=== PATIENT | female | born 1995 | race Caucasian/White ===

== ENCOUNTER 2019-02-21 20:11 | Emergency (ER) | payer BC, SELFPAY ==
[2019-02-21 20:13] VITALS: BP 130/85; PULSE 81; RESP 17; TEMP 36.7; O2SAT 100; BMI 18.8
--- NOTE | 2019-02-21 20:22 | ED.VISSUMM ---
- ER Visit Summary Date of Service: 02/21/19 Chief Complaint: Nausea and vomiting, 7 weeks History of Present Illness: The patient is a 24 F who has nausea and vomiting. She started having this 3 days ago. She denies any abdominal pain. Every time she eats or drinks anything she has vomiting. She feels a little bit constipated as well. Denies any urinary symptoms. She is currently 7 weeks . She has had some issues with this previously in another but not as bad. She took nothing for this at home. Denies any fevers. She does admit to feeling dizzy. Physical Examination: Vital signs reviewed. HEENT exam unremarkable. Heart is regular rate and rhythm without murmurs. Lungs are clear to auscultation. Abdomen is soft and nontender. Extremities reveal no edema. Skin exam normal. Neurologic exam normal. Test Results: None performed Emergency Department Course and Treatment: The patient was given lactated Ringer's and Zofran IV. She feels much better. She was able to tolerate p.o. after this. I did perform a bedside ultrasound and her bladder is pretty full of urine. She is only 7 weeks it was difficult to see but I do see an IUP. She had an ultrasound earlier this week which showed a twin IUP. Patient has a follow-up tomorrow for a repeat ultrasound. She will keep this appointment. I will give her Zofran ODT for home. Treatment Plan: [] Disposition: Discharge Impression: Nausea and vomiting, first trimester This note was generated with [employer] software. It may contain incorrect words, spelling, and punctuation that were not noted in review of the chart prior to signing ED Disposition - Plan for ED Patient: Referrals: David Kirk MD [Primary Care Provider] -
[2019-02-21] MEDS: Ondansetron 4 MG/2 ML Vial IV (20:38)
[2019-02-21] MEDS: Lactated Ringers 1,000 ML 999 ML IV (20:38)
--- NOTE | 2019-02-21 22:02 | ED.DEP ---
ED Disposition - Plan for ED Patient: Disposition: Home or Assisted Living Instructions: VOMITING (5y-Adult) Prescriptions: Ondansetron [Zofran Odt] 4 mg PO Q8H PRN PRN #10 tab PRN Reason: Nausea Prescription Printed Referrals: David Kirk MD [Primary Care Provider] -
[2019-02-21 22:11] VITALS: BP 116/80; PULSE 63; RESP 16; O2SAT 97
[2019-02-21 22:20] VITALS: BP 116/80; PULSE 63; RESP 16; O2SAT 97
== END 2019-02-21 22:20 | disposition home or self-care (01) ==
PROVIDERS: Emergency Provider Emergency Medicine; Family Provider Family Medicine; PCP Family Medicine
DX: O21.9 Vomiting of pregnancy, unspecified (principal); Z3A.01 Less than 8 weeks gestation of pregnancy
CPT/HCPCS: 96361; 96374; 99283; A4216; J2405

== ENCOUNTER 2019-07-30 20:10 | Outpatient (CLI) | payer MEDICAID, SELFPAY ==
[2019-07-30 21:16] LABS: Bacteria 0 SEEN /hpf (None Seen); Mucous, Urine 0 SEEN /hpf (<or=2+); Red Blood Cells-Urine 0 SEEN /hpf (0-5); Squamous Epithelial Cells - UA 0 SEEN /hpf (5-10); White Blood Cells 0 SEEN /hpf (0-5)
[2019-07-30 21:37] LABS: Color, Urine Straw (Yellow); Glucose, Dipstick Normal (Normal); Ketone-Dipstick Negative (Negative); Leukocyte Esterase-Dipstick Negative /ul (Negative); Nitrite-Dipstick Negative (Negative); Occult Blood-Urine Negative /ul (Negative); Protein-Dipstick Negative (Negative); Urine Bilirubin Dipstick Negative (Negative); Urine Clarity Sl. Cloudy (Clear); Urine Urobilinogen Normal (Normal)
[2019-07-30 21:43] VITALS: BMI 23.0
[2019-07-30 21:52] LABS: Amorphous Sediment 1+
[2019-07-30] MEDS: Lactated Ringers 1,000 ML 999 ML IV (22:58)
[2019-07-30] MEDS: Betamethasone/Betamethasone 30 MG/5 ML Vial 12 MG IM (23:06)
[2019-07-30 23:18] LABS: Fetal Fibronectin Negative
--- NOTE | 2019-08-03 20:57 | OB.TRI.HP_ITS ---
History of Present Illness Date of Service: 07/30/19 Was patient seen by the physician?: No Reason For Visit: RULE OUT LABOR Date of Service: 07/30/19 Final BETTY: 10/09/19 Final BETTY Source: US <20 weeks Gestational age: 29 6/7 weeks Allergies No Known Allergies Allergy (Verified 07/31/19 19:23) Laboratory Studies: Laboratory Tests 07/30/19 07/30/19 Range/Units 21:05 21:05 Urine Color Straw (Yellow) Urine Clarity Sl. Cloudy (Clear) Urine pH 7.0 (5.0 - 8.0) Ur Specific [place] 1.010 (1.002-1.030) Urine Protein Negative (Negative) mg/dl Urine Glucose (UA) Normal (Normal) mg/dl Urine Ketones Negative (Negative) mg/dl Urine Occult Blood Negative (Negative) /ul Urine Nitrite Negative (Negative) Urine Bilirubin Negative (Negative) mg/dL Urine Urobilinogen Normal (Normal) mg/dl Ur Leukocyte Esterase Negative (Negative) /ul Urine RBC 0 SEEN (0-5) /hpf Urine WBC 0 SEEN (0-5) /hpf Ur Squamous Epith Cells 0 SEEN (5-10) /hpf Amorphous Sediment 1+ Urine Bacteria 0 SEEN (None Seen) /hpf Urine Mucus 0 SEEN (<or=2+) /hpf Fibronectin Negative NST - FHR Rate Baby A Baseline: 135 then 110 Variability:: Moderate Accelerations:: 15 x 15 Decelerations:: None NST Reactive:: Yes FHR Category:: Category I Uterine Activity:: frequent short contraction Impression/Plan 24 YOF high risk multigravida 29 6/7 weeks threatened PTL [place] home w/ f/u for second celestone tomorrow return prn or as scheduled
== END 2019-07-31 08:00 | disposition home or self-care (01) ==
LOC: WPOUT 20:39 → WP 20:40
PROVIDERS: Family Provider Family Medicine; PCP Family Medicine; Referring Provider Advanced Practice Midwife; Visit Provider Advanced Practice Midwife
DX: O47.03 False labor before 37 completed weeks of gestation, third trimester (principal); O09.43 Supervision of pregnancy with grand multiparity, third trimester; Z3A.29 29 weeks gestation of pregnancy
CPT/HCPCS: 96360; 59050; 81001; 82731; 87086; 87088; 96372; 99218; J7120; G0378; J0702

== ENCOUNTER 2019-07-31 19:12 | Outpatient (CLI) | payer MEDICAID, SELFPAY ==
[2019-07-30 21:43] VITALS: BMI 23.0
[2019-07-31 19:21] VITALS: BMI 22.8
[2019-07-31] MEDS: Betamethasone/Betamethasone 30 MG/5 ML Vial 12 MG IM (20:04)
--- NOTE | 2019-08-01 12:11 | OB.TRI.NOTE ---
History of Present Illness Date of Service: 07/31/19 Was patient seen by the physician?: No Reason For Visit: XAVIER INFANTE Date of Service: 07/31/19 Final BETTY: 10/09/19 Final BETTY Source: US <20 weeks Gestational age: 30w Allergies No Known Allergies Allergy (Verified 07/31/19 19:23) Impression/Plan 24-year-old 2 para 0 at 3 weeks 0 days with threatened labor. Returns for second betamethasone injection. No evidence of labor today. Betamethasone injection was given and patient was discharged home with routine follow-up and instructions.
== END 2019-07-31 20:18 | disposition home or self-care (01) ==
LOC: WPOUT 19:17 → WP 19:18
PROVIDERS: Family Provider Family Medicine; PCP Family Medicine; Visit Provider Obstetrics & Gynecology
DX: O60.03 Preterm labor without delivery, third trimester (principal); Z3A.30 30 weeks gestation of pregnancy
CPT/HCPCS: 96372; 99218; G0378; J0702

== ENCOUNTER 2019-08-31 03:12 | Outpatient (CLI) | payer MEDICAID, SELFPAY ==
[2019-08-31 03:38] VITALS: BMI 23.8
--- NOTE | 2019-08-31 06:44 | OB.TRI.NOTE ---
History of Present Illness Date of Service: 08/31/19 Was patient seen by the physician?: No Reason For Visit: R/O Final BETTY: 10/09/19 Final BETTY Source: US <20 weeks Gestational age: 34 Weeks and 3 Days Allergies No Known Allergies Allergy (Verified 08/31/19 03:39) NST - FHR Rate Baby A Baseline: 120 Variability:: Moderate Accelerations:: 15 x 15 Decelerations:: Variable NST Reactive:: Yes Uterine Activity:: Irregular Impression/Plan Reactive NST for threatened PTL
== END 2019-08-31 05:35 | disposition home or self-care (01) ==
LOC: WPOUT 03:35 → WP 03:35
PROVIDERS: PCP Family Medicine; Referring Provider Obstetrics & Gynecology; Visit Provider Obstetrics & Gynecology
DX: O60.03 Preterm labor without delivery, third trimester (principal); Z3A.00 Weeks of gestation of pregnancy not specified
CPT/HCPCS: 59025; 59050; 99218; G0378

== ENCOUNTER 2019-10-03 21:30 | Outpatient (CLI) | payer MEDICAID, SELFPAY ==
[2019-10-03 21:54] VITALS: BP 107/71; PULSE 83; TEMP 98.1; O2SAT 98
[2019-10-03 22:38] VITALS: BMI 23.6
[2019-10-03 22:57] LABS: ROM Internal Control Test YES-OK TO RESULT pt. (Internal QC); ROM Patient Test Negative (Negative)
--- NOTE | 2019-10-04 08:46 | OB.TRI.NOTE ---
History of Present Illness Date of Service: 10/03/19 Was patient seen by the physician?: No Reason For Visit: R/O LABOR Date of Service: 10/03/19 Final BETTY: 10/09/19 Final BETTY Source: US <20 weeks Gestational age: 39 Weeks and 1 Days Allergies No Known Allergies Allergy (Verified 10/03/19 22:24) Laboratory Studies: Laboratory Tests 10/03/19 Range/Units 21:56 Vag Amniotic Fld Detect Negative (Negative) NST - FHR Rate Baby A Baseline: 135 Variability:: Moderate Accelerations:: 15 x 15 NST Reactive:: Yes, Appropriate for gestational age FHR Category:: Category I Uterine Activity:: irreg ctxs Impression/Plan 24-year-old 2 para 0 at 39-1/7 weeks here for rule out labor and rule out rupture membranes. Amnio sure was negative. NST is reactive. Discharge home with routine instructions and follow-up.
[2019-10-06 23:41] VITALS: TEMP 36.8
== END 2019-10-03 23:55 | disposition home or self-care (01) ==
LOC: WPOUT 22:14 → WP 22:15
PROVIDERS: PCP Family Medicine; Visit Provider Obstetrics & Gynecology
DX: O47.1 False labor at or after 37 completed weeks of gestation (principal); Z3A.39 39 weeks gestation of pregnancy
CPT/HCPCS: 59025; 59050; 84112; 99218; G0378

== ENCOUNTER 2019-10-06 23:30 | Outpatient (CLI) | payer MEDICAID, SELFPAY ==
[2019-10-06 23:47] VITALS: BMI 23.5
[2019-10-06 23:49] VITALS: BP 109/73; PULSE 78; TEMP 37.1
--- NOTE | 2019-10-07 12:43 | OB.TRI.PN ---
Progress Notes Date of Service: 10/06/19 Progress Note: 24 year old at 40w4d for decreased movement. No contractions, vaginal bleeding, or signs of labor O: FHT 120, moderate variability, accels, no decels, reactive TOCO: one contraction A: Decreased Movement P: 1) No signs of labor. Reactive NST, D/C home
== END 2019-10-07 00:20 | disposition home or self-care (01) ==
LOC: WPOUT 23:43 → WP 23:44
PROVIDERS: PCP Family Medicine; Visit Provider Advanced Practice Midwife
DX: O36.8130 Decreased fetal movements, third trimester, not applicable or unspecified (principal); Z3A.40 40 weeks gestation of pregnancy
CPT/HCPCS: 59025; 59050; 99218; G0378

== ENCOUNTER 2019-10-12 03:20 | Inpatient (IN) | payer MEDICAID, SELFPAY ==
[2019-10-12] VITALS (19 sets, daily range): BP systolic 98–137; BP diastolic 54–89; PULSE 57–87; RESP 15–16; TEMP 36.8–37.4; O2SAT 97–98; BMI 23.3
[2019-10-12 03:20] LABS: ROM Internal Control Test YES-OK TO RESULT pt. (Internal QC)
[2019-10-12 03:21] LABS: ROM Patient Test POSITIVE (Negative)
[2019-10-12 04:52] LABS: Absolute Lymphocyte Count 1.78 X10^3/uL (0.83-4.51); Absolute Neutrophil Count 5.6 X10^3/uL (2.0-7.7); Basophil# 0.03 X10^3/uL; Basophil% 0.4 % (0-1); Eosinophil# 0.03 X10^3/uL; Eosinophils% 0.4 % (0-5); Hemoglobin 13.8 g/dL (12.0-15.0); Lymphocyte # 1.78 X10^3/ul (4.0); Lymphocyte % 22.2 % (19-41); Mean Corp Hgb Conc 35.4 g/dL (32-36); Mean Corpuscular Hgb 33.3 pg (27.0-32.0); Mean Platelet Vol. 10.3 fl (6.2-12.0); Monocyte# 0.61 X10^3/uL; Monocyte% 7.6 % (0-10); NRBC Flagged by Analyzer 0 % (0-5); Neutrophil # 5.55 X10^3/uL (2.7-7.7); Platelet Count 212 K/mm3 (150-450); RBC Distribution Width CV 12.6 % (11.6-14.6); RBC Distribution Width SD 43.8 fl (35.1-43.9); Red Blood Count 4.15 M/mm3 (4.2-5.4)
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
[2019-10-12] MEDS: Oxytocin 30 units/NS 500 ml 30 UNITS/500 ML IV.SOLN 334 UNITS IV (07:55)
--- NOTE | 2019-10-12 08:32 | PCM.OPRPT ---
Problem List (1) Post-term , 40-42 weeks of gestation Status: Acute Report of Operation Date of Procedure: 10/12/19 Pre-Operative Diagnosis: 40.3 weeks gestation, Spontaneous labor, SROM Post-Operative Diagnosis: same as above Surgery/Procedure Performed:: Description of Surgical Findings:: Viable female infant delivered in left occiput anterior position. Normal and intact appearing placenta. Three-vessel cord. Estimated Blood Loss (mL): 200 Description of Procedure: Patient progressed to complete dilation on own. Began feeling pressure and was able to push well with contractions. Delivery of head over intact perineum. Tight nuchal cord around neck x1. Shoulders and body delivered in somersault fashion. Cord clamped and cut after 60 second delay. Cord blood was obtained. Placenta delivered spontaneously and intact with a 3 vessel cord. Vaginal sweep completed. Fundus was firm and bleeding hemostatic. No lacerations were noted. A vaginal sweep was performed and sponge counts were correct. Vaginal Delivery Maternal Presentation: Spontaneous Rupture of Membranes Amniotic Membrane Rupture Type: Spontaneous at home Rupture of Membrane time: 0100 Amniotic Fluid Description: Clear Final BETTY: 10/09/19 Gestational age: 40 Weeks and 3 Days Date of Procedure: 10/12/19 Type of Anesthesia: None, - - Nitrous oxide Presentation: Vertex, IRMA Placental Delivery Description: Spontaneous Placenta Disposition: Routine to Lab Cord Vessel Description: 3 Vessels Cord Entanglement: Around neck x 1, tight, - - Around body x1 loose Estimated Blood Loss: 200 Infant A gender: Female (1 minute): 7 (5 minute): 9 Episiotomy Description: None Laceration: None Medications given after delivery: IV Pitocin Complications: None
--- NOTE | 2019-10-12 12:30 | NURSING ---
pt up to bathroom gait steady; pt void - did not save- denies any problems voiding- kandis care explained
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
[2019-10-13 00:15] VITALS: BP 125/75; PULSE 58; PULSE 62; RESP 18; TEMP 36.9
[2019-10-13 04:07] VITALS: BP 146/93; PULSE 49
[2019-10-13 04:09] VITALS: BP 121/75; PULSE 47
[2019-10-13 04:10] VITALS: BP 121/75; PULSE 58; RESP 14; TEMP 36.3
[2019-10-13 08:35] VITALS: BP 120/85; PULSE 58
--- NOTE | 2019-10-13 08:39 | PN.OBGYN_ITS ---
Patient Problems: Active and Suspected Problems (Last Updated 10/12/19 @ 08:24 by Teagan Downey CNM) Post-term , 40-42 weeks of gestation (Acute) Subjective: pt seen at bedside doing well. pt report good pain control. lochia mild. Breast feeding. Voiding w/o difficulty. - Physical Exam Vitals/I&O's: Vital Signs Temp Pulse Resp BP Pulse Ox 97.4 F L 58 L 14 120/85 H 97 10/13/19 04:10 10/13/19 08:35 10/13/19 04:10 10/13/19 08:35 10/12/19 15:16 Oxygen Delivery Method Room Air Weight: 67.585 kg Body Mass Index (BMI) 23.3 Intake and Output for Last 24 Hours 10/11/19 10/12/19 10/13/19 23:59 23:59 23:59 Intake Total 500 / 500 Output Total 75 / 75 Balance 425 / 425 General: Alert, Oriented x3 Abdomen: Soft, Non Tender, Non-Distended, - - fundus firm Extremities: No Calf Tenderness Current Medications Acetaminophen (Tylenol) 1,000 mg PO Q8H PRN PRN PRN Reason: Pain Score 1-3/10 Bisacodyl (Dulcolax) 10 mg RECTAL UD PRN PRN Reason: If no BM Dibucaine (Dibucaine) 1 applic TOPICAL TID PRN PRN; Protocol PRN Reason: Discomfort Hydrocortisone (Hytone) 1 applic TOPICAL TID PRN PRN; Protocol PRN Reason: Discomfort Ibuprofen (Motrin) 600 mg PO Q6H PRN PRN PRN Reason: Pain Score 1-3/10 Methylergonovine Maleate (Methergine) 0.2 mg IM X1 PRN PRN Reason: Excess bleeding/uterine atony Ondansetron HCl (Zofran) 4 mg IV Q4H PRN PRN PRN Reason: Nausea Senna/Docusate Sodium (Senokot-S, Sonja-Colace) 1 - 2 tablet PO DAILY PRN PRN PRN Reason: Constipation Simethicone (Mylicon) 80 mg PO PCHS PRN PRN Reason: Indigestion/Stomach pain Sodium Chloride () 5 - 15 ml IV UD PRN PRN Reason: SALINE FLUSH Medical Necessity - Tobacco Use Smoking Status: Never smoker Assessment/Plan All Active Problems (Last Updated 10/12/19 @ 08:24 by Teagan Downey CNM) Post-term , 40-42 weeks of gestation (Acute) PPD#1, doing well routine care pain mgmt [facility]
--- NOTE | 2019-10-13 08:42 | DCINST_ITS ---
Discharge Diet: No Restrictions Discharge Activity: Return to Normal Activity, May not drive while taking narcotic pain medications., May Shower May resume sexual activity in: 4-6 weeks Additional Activity Instructions:: Nothing in the vagina for 4-6 weeks. You may return to work/school in 6 weeks. Call your doctor if your incision/area has: Continuous Slow Oozing, Sudden Increased Bleeding, Increased Pain/ Swelling, Increased Redness, Foul Smelling Discharge Additional Instructions: If you experience any of the following, contact your healthcare provider. * Bleeding that soaks a pad every hour for 2 hours * Fever 100.4 or higher * Unrelieved incision or abdominal pain * Swelling, redness, discharge or bleeding from your incision or episiotomy site * Your incision begins to separate * Problems urinating (including inability to urinate or burning while urinating). * Visual changes * Severe headache * Flu-like symptoms * Pain or redness in one of both of your breasts * Pain, warmth, tenderness or swelling in your legs, especially the calf area * Frequent nausea and vomiting * Symptoms of depression or anxiety If you experience any of the following, call 911 or go to the nearest Emergency Room. * Chest pain * Problems breathing * Seizure activity * Partial or complete paralysis of a body part, slurred speech, weakness or drooping of the face, or a sudden inability to walk or hold your balance Allergies/Adverse Reactions: Allergies No Known Allergies Allergy (Verified 10/12/19 03:11) Medications to take at Discharge Pnv No.103/Folic/Om3s/Fish Oil [ Gummies] 1 ea PO DAILY 02/21/19 Sertraline HCl [Zoloft] 100 mg PO DAILY 02/21/19 Ferrous Sulfate [Iron] 1 tab PO DAILY 07/30/19 When: Call to make an appointment with your doctor in 1-2 weeks (virtual visit recommended) and then again in 6 weeks. If you had elevated Blood Pressure or 4th degree laceration you will need to be seen in 2 weeks. Primary Care Physician: David Kirk MD [Primary Care Provider] - Test Results: Test results from this visit will be discussed in further detail at your follow- up appointment, if applicable.
[2019-10-13 10:00] VITALS: BP 120/85; PULSE 58; RESP 12; TEMP 36.6
--- NOTE | 2019-10-13 11:50 | NURSING ---
1120 Discharged to home via wheelchair to car with in car seat. Pt states she wants to be discharged today and feels able to care for herself and her baby. Teaching completed. Denies questions. FOB supportive.
== END 2019-10-13 11:20 | disposition home or self-care (01) | DRG 560 ==
LOC: WPOUT 03:24 → WP 03:24
PROVIDERS: Admitting Provider Advanced Practice Midwife; PCP Family Medicine; Referring Provider Advanced Practice Midwife; Visit Provider Advanced Practice Midwife
DX: O48.0 Post-term pregnancy (principal); Z3A.40 40 weeks gestation of pregnancy; O69.1XX0 Labor and delivery complicated by cord around neck, with compression, not applicable or unspecified; Z37.0 Single live birth
CPT/HCPCS: 59025; 59050; 84112; 85025; 86850; 86900; 86901; 99218; G0378

== ENCOUNTER 2020-05-06 13:00 | Outpatient (CLI) | payer MEDICAID, SELFPAY ==
[2019-10-12 03:09] VITALS: BMI 23.3
== END 2020-05-06 14:00 | disposition home or self-care (01) ==
LOC: WPOUT 13:06 → WP 13:08
PROVIDERS: PCP Family Medicine; Referring Provider Advanced Practice Midwife; Visit Provider Advanced Practice Midwife
DX: O92.79 Other disorders of lactation (principal)
CPT/HCPCS: 96158; 96159

== ENCOUNTER 2021-01-15 12:18 | Emergency (ER) | payer MEDICAID, SELFPAY ==
[2019-10-12 03:09] VITALS: BMI 23.3
[2021-01-15 12:19] VITALS: BP 110/74; PULSE 73; RESP 14; TEMP 36.1; O2SAT 100; BMI 20.7
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
[2021-01-15 13:31] VITALS: PULSE 99; RESP 20; O2SAT 98
--- NOTE | 2021-01-15 13:31 | ED.RN ---
THIS NURSE REVIEWED D/C INSTRUCTIONS WITH PT AND . PT VERBALIZED UNDERSTANDING OF INSTRUCTIONS. PT DENIES FURTHER NEEDS OR QUESTIONS AT THIS TIME
== END 2021-01-15 13:32 | disposition home or self-care (01) ==
PROVIDERS: Emergency Provider Emergency Medicine
DX: T63.441A Toxic effect of venom of bees, accidental (unintentional), initial encounter (principal); R55 Syncope and collapse; F32.9 Major depressive disorder, single episode, unspecified; Z79.899 Other long term (current) drug therapy
CPT/HCPCS: 99282

== ENCOUNTER 2021-03-10 15:49 | Emergency (ER) | payer MEDICAID, SELFPAY ==
[2021-03-10 15:51] VITALS: BP 111/72; PULSE 83; RESP 15; TEMP 36; O2SAT 95; BMI 22.7
--- NOTE | 2021-03-10 16:00 | EKG12_ITS ---
Test Reason : SOB Blood Pressure : / mmHG Vent. Rate : 077 BPM Atrial Rate : 077 BPM P-R Int : 114 ms QRS Dur : 080 ms QT Int : 372 ms P-R-T Axes : 044 073 010 degrees QTc Int : 420 ms Normal sinus rhythm Normal ECG Confirmed by STANLEY MORALES, DELORES ([id number]), continuity editor JULIENNE ORANTES ([id number]) on 03/13/2021 9:25:46 AM Referred By: MARK/ANURADHA Confirmed By:MICHAEL ANGEL MD
[2021-03-10 16:12] LABS: Absolute Lymphocyte Count 1.67 X10^3/uL (0.83-4.51); Absolute Neutrophil Count 3.8 X10^3/uL (2.0-7.7); Basophil# 0.02 X10^3/uL; Basophil% 0.3 % (0-1); Eosinophil# 0.11 X10^3/uL; Eosinophils% 1.7 % (0-5); Hematocrit 32.5 % (37-47); Hemoglobin 10.8 g/dL (12.0-15.0); Lymphocyte # 1.67 X10^3/ul (0.83-4.51); Lymphocyte % 26.3 % (19-41); Mean Corp Hgb Conc 33.2 g/dL (32-36); Mean Corpuscular Hgb 33.3 pg (27.0-32.0); Mean Corpuscular Volume 100.3 fL (81-99); Mean Platelet Vol. 9.6 fl (6.2-12.0); Monocyte# 0.72 X10^3/uL; Monocyte% 11.3 % (0-10); NRBC Flagged by Analyzer 0 % (0-5); Neutrophil % 59.9 % (47-70); Platelet Count 238 K/mm3 (150-450); RBC Distribution Width CV 13.3 % (11.6-14.6); RBC Distribution Width SD 49.1 fl (35.1-43.9); Red Blood Count 3.24 M/mm3 (4.2-5.4); White Blood Count 6.4 K/mm3 (4.4-11.0)
--- NOTE | 2021-03-10 16:15 | RAD_ITS ---
STUDY: X-RAY CHEST REASON FOR EXAM: Female, 26 years old. SOB -- PLEASE SHIELD TECHNIQUE: Single frontal view of the chest. COMPARISON: 04/08/2014. FINDINGS: The lungs are clear and expanded. There is no demonstrated pleural abnormality. Normal size heart. Normal mediastinum and daniel. Normal visualized pulmonary arteries. Normal visualized aortic arch and descending thoracic aorta. Normal visualized thoracic spine. Normal visualized ribs, clavicles, and shoulders. There is no demonstrated abnormality of the visualized soft tissue structures of the upper abdomen. RAD/Chest 1 View IMPRESSION: Normal x-ray examination of the chest. Electronically Signed: Yamile Zhang MD at 16:41 EDT Tel , Service support ,
[2021-03-10 16:30] LABS: D-Dimer Quantitative (DVT/PE) 1.07 FEU/ug/m (0.27-0.49)
[2021-03-10 16:34] LABS: Anion Gap 7 (5-15); BUN 8 mg/dL (7-18); BUN/Creat Ratio 18.1 RATIO (10-20); Calcium,Total 8.5 mg/dL (8.5-10.1); Chloride 108 mmol/L (98-107); Creatinine, Serum 0.44 mg/dL (0.55-1.02); EST Glomerular Filtration Rate 181 mL/min (>60); Est Glom Filt Rate - Afr Amer 219 mL/min (>60); Estimated Creatinine Clearance 186.76 ml/min; Glucose 82 mg/dL (74-106); Potassium 3.6 mmol/L (3.5-5.1); Sodium Level 138 mmol/L (136-145); Troponin-I HS < 3.0 pg/mL (3.0-53.7)
[2021-03-10 16:46] VITALS: O2SAT 99
--- NOTE | 2021-03-10 16:57 | CT_ITS ---
STUDY: CTA CHEST REASON FOR EXAM: Female, 26 years old. , SOB, upper back pain, elev dimer RADIATION DOSAGE (If Supplied By Facility): CTDIvol = ( 7.68 ) mGy, DLP = ( 220.11 ) mGycm TECHNIQUE: The examination was performed with the intravenous administration of IV 100mL Isovue-370. Post-processing of the angiographic images was performed, with multiplanar reformation and 3D reconstruction. Individualized dose optimization techniques were used for this CT. COMPARISON: None. FINDINGS: Heart size and pericardium are unremarkable. The aorta is normal in caliber. No aneurysm or dissection. There is no mediastinal mass or adenopathy. There is no hilar or axillary adenopathy. There is no evidence of pulmonary embolus. There is no pleural effusion. There is no pulmonary consolidation. Visualized abdomen is unremarkable. There is no osseous abnormality. CT/CTA Chest W/WO Contrast IMPRESSION: No acute findings. No pulmonary embolism or arterial dissection. Electronically Signed: Yamile Zhang MD at 18:21 EDT Tel , Service support ,
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
[2021-03-10 18:12] VITALS: PULSE 86; RESP 14; O2SAT 98
[2021-03-10 18:52] VITALS: PULSE 76; RESP 16; O2SAT 98
== END 2021-03-10 18:54 | disposition home or self-care (01) ==
PROVIDERS: Emergency Provider Emergency Medicine
DX: O99.513 Diseases of the respiratory system complicating pregnancy, third trimester (principal); R06.00 Dyspnea, unspecified; O99.891 Other specified diseases and conditions complicating pregnancy; M54.6 Pain in thoracic spine; O26.893 Other specified pregnancy related conditions, third trimester; F41.9 Anxiety disorder, unspecified; F32.9 Major depressive disorder, single episode, unspecified; Z3A.34 34 weeks gestation of pregnancy; Z79.899 Other long term (current) drug therapy
CPT/HCPCS: 71045; 71275; 80048; 84484; 85025; 85379; 93005; 99284; Q9967; A4216

== ENCOUNTER 2021-04-12 07:00 | Inpatient (IN) | payer MEDICAID, SELFPAY ==
[2021-04-12] VITALS (58 sets, daily range): BP systolic 101–141; BP diastolic 55–90; PULSE 57–102; TEMP 36.3–37.7; O2SAT 97–100; BMI 21.8
[2021-04-12] MEDS: Lactated Ringers 1,000 ML 50 ML IV (08:00)
[2021-04-12 08:21] LABS: Absolute Lymphocyte Count 2.42 X10^3/uL (0.83-4.51); Absolute Neutrophil Count 3.5 X10^3/uL (2.0-7.7); Basophil# 0.03 X10^3/uL; Basophil% 0.5 % (0-1); Eosinophil# 0.04 X10^3/uL; Eosinophils% 0.6 % (0-5); Hematocrit 32.3 % (37-47); Lymphocyte # 2.42 X10^3/ul (0.83-4.51); Lymphocyte % 36.5 % (19-41); Mean Corp Hgb Conc 34.1 g/dL (32-36); Mean Corpuscular Hgb 33.8 pg (27.0-32.0); Mean Corpuscular Volume 99.4 fL (81-99); Monocyte# 0.64 X10^3/uL; Monocyte% 9.7 % (0-10); NRBC Flagged by Analyzer 0 % (0-5); Neutrophil # 3.47 X10^3/uL (2.7-7.7); Neutrophil % 52.2 % (47-70); POSITIVE MORPHOLOGY YES; Platelet Count 216 K/mm3 (150-450); RBC Distribution Width CV 13.3 % (11.6-14.6); RBC Distribution Width SD 48.6 fl (35.1-43.9); Red Blood Count 3.25 M/mm3 (4.2-5.4); White Blood Count 6.6 K/mm3 (4.4-11.0)
[2021-04-12 08:23] LABS: Differential Indicated SCAN CRITERIA MET
[2021-04-12] MEDS: Oxytocin 30 units/NS 500 ml 30 UNITS/500 ML IV.SOLN IV (08:30)
[2021-04-12 09:24] LABS: Differential Comment SCANNED; Reactive Lymphocyte 1+
[2021-04-12] MEDS: 0.9% Normal Saline Single 100 ML IV.SOLN. INTRA-UTER (09:31)
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
[2021-04-12] MEDS: Lactated Ringers 500 ML 999 ML IV (16:26)
[2021-04-12] MEDS: fentaNYL-bupivacaine (epidural) 100 ML BAG EPIDURAL (18:04)
[2021-04-12] MEDS: Lactated Ringers 1,000 ML 200 ML IV (19:32)
--- NOTE | 2021-04-12 21:30 | PLAC_PTH ---
PATIENT: HARRISON YOUNG LOC: [facility] U#:[id number] AGE/SX: 26/F ROOM: [facility] RE04/12/[address]: Dr. Lilly Velez MD : 1995 BED: 1 DIS: 04/14/2021 SPEC #: [id number] RECD: 04/12/21 22:54 STATUS: SHELBY MELENDEZ #: [id number] MARIA A: 04/12/21 21:[address]: Lilly Velez DEPT: SURGICAL PATHOLOGY RECD BY: Genna Neil ENTERED: 04/13/21 09:07 SP TYPE: PLACENTA OTHR DR: No Primary Care Phys Tissues: Placenta, NOS Procedures: Surgery Specimen Level V HEADER OPERATION: Vaginal delivery PRE-OP DIAGNOSIS: IUGR TISSUE SUBMITTED: Placenta MICROSCOPIC DIAGNOSIS Marie placenta (391 gm): Umbilical cord ? trivascular with no inflammation. Placental membranes ? no pathologic change. Placental disc ? Ghassan-Apollo change, mildly increased intraparenchymal fibrin plaques, focal nonspecific chronic villitis and focal remote infarct. AM:[email or web address] 04/14/2021 MICROSCOPIC DESCRIPTION Slides are reviewed. GROSS DESCRIPTION SPECIMEN: PLACENTA / CLINICAL INFORMATION: A. Weight: 2.58 kg B. Gestational Age: 38 weeks C. Sex: Male PLACENTAL WEIGHT (POST FIXATION): 391 gm PLACENTAL DIMENSIONS: 15 x 17 x 2 cm PLACENTAL SHAPE: Usual ovoid PLACENTAL WEIGHT FOR GESTATIONAL AGE: Within 10-99th percentile. MEMBRANES - Present A. Insertion: Marginal B. Site of rupture from edge: 3 cm from edge of placental disc C. Color of membrane: Wilkins-garnica D. Abnormalities: None UMBILICAL CORD - Present A. Color: Wilkins-garnica B. Insertion: Paracentral C. Length: 30 cm D. Diameter: 1.2 cm E. Number of vessels: Three F. Abnormalities: None PLACENTAL DISC - Present A. Color of surface: Wilkins-garnica B. surface abnormalities: None C. Maternal cotyledons: Intact with minimal tears D. Attached retro placental clot: No clot E. Cut surface: Dark red and spongy F. Lesions: None G. Separate clot: Absent SECTIONS SUBMITTED: 1. Membrane roll 2. Cord, maternal end 3. Cord, end 4. Placental disc, and maternal surfaces 5. Placental disc, and maternal surfaces 6. Placental disc, and maternal surfaces SJ:joseluis 04/13/21 TC:3 CPT: 00003
[2021-04-12] MEDS: Oxytocin 30 units/NS 500 ml 30 UNITS/500 ML IV.SOLN 334 UNITS IV (21:34)
--- NOTE | 2021-04-12 21:53 | EX.PCM.OBRPT ---
Maternal Data Information Final BETTY: 04/25/21 Gestational age: 38 1/7 weeks Vaginal Delivery Maternal Presentation Maternal Presentation: Spontaneous Rupture of Membranes and Medically Indicated Induction Maternal Presentation: Suspected IUGR of fetus Type of Induction: Pitocin, Campbell Bulb and Amniotomy Operative Information Date of Procedure: 04/12/21 Pre-Operative Diagnosis: labor Post-Operative Diagnosis: same Surgery / Procedure Performed: Spontaneous Vaginal Delivery Type of Anesthesia: Epidural Special Medications: none Drain: Campbell to straight drain Estimated Blood Loss: 300 Time of Delivery: 21:30 Findings Description of Procedure: A vigorous male infant was delivered [IRMA] over [a second-degree perineal laceration]. The remainder the was delivered with maternal pushing and gentle traction only in less than 15 seconds. The Pitocin infusion was initiated for active management of the third stage. The cord was clamped and cut [after 1 minute]. The was attended to by the waiting nursing staff. The placenta was delivered spontaneously and intact. The cervix and vagina were intact. A small second-degree perineal laceration was repaired with 2-0 Vicryl suture in a running standard fashion. Sponge and needle counts were correct. A vaginal sweep was completed by me. Presentation: IRMA Amniotic Fluid Description: Clear Placental Delivery Description: Spontaneous Placenta Disposition: [facility] Cord Vessel Description: 3 Vessels Cord Entanglement: None A Gender: Male (Surya) (1 minute): 8 (5 minute): 9 Delayed Cord Clamping: Yes Admit VTE Documentation VTE Present on Admission: No VTE Pharm Prophylaxis Ordered: No Reason Prophylaxis Not Ordered: Procedure Not Indicated
[2021-04-12 23:15] LABS: Pathology Specimen OB SEE PATHOLOGY REPORT
[2021-04-13] VITALS (9 sets, daily range): BP systolic 93–123; BP diastolic 53–81; PULSE 64–75; RESP 16–18; TEMP 36.5–37.3; O2SAT 97
--- NOTE | 2021-04-13 01:47 | NURSING ---
Patients blood type A- per pt chart at [facility]. Blood type A+ according to blood draw done at [facility] on admission. Dr. Velez aware and plan to perform rhogam workup on patient.
[2021-04-13] MEDS: Naproxen 500 MG Tablet PO ×2 (03:30→12:41)
[2021-04-13] MEDS: Acetaminophen 500 MG Tablet 1000 MG PO ×2 (07:39→20:15)
--- NOTE | 2021-04-13 08:33 | PCM.PN.OB ---
Subjective Subjective She is doing well. Pain well controlled. Ambulating voiding without difficulty. Lochia normal. Breast-feeding. Objective Data Objective Data Vital Signs: Vital Signs Temp Pulse Resp BP Pulse Ox 98.3 F 67 18 123/81 H 97 04/13/21 03:34 04/13/21 03:37 04/13/21 03:34 04/13/21 03:37 04/13/21 03:34 Oxygen Delivery Method Room Air Weight: 139 lb 5.314 oz Body Mass Index (BMI) 21.8 Intake & Output: Intake and Output for Last 24 Hours 04/11/21 04/12/21 04/13/21 23:59 23:59 23:59 Intake Total 2217.93 / 2217.93 338.57 / 338.57 Output Total 800 / 800 1000 / 1000 Balance 1417.93 / 1417.93 -661.43 / -661.43 Lab / Micro Data Result Diagrams: 04/12/21 08:00 Labs: Laboratory Results - last 24 hr 04/12/21 08:00: Differential Comment SCANNED, Reactive Lymphocytes 1+ 04/12/21 08:00: Blood Type A POSITIVE, Antibody Screen NEGATIVE 04/13/21 01:22: Screen NEGATIVE, Baby's Blood Type AB POSITIVE, Baby's JOSE NEGATIVE Micro: Microbiology 04/12/21 20:25 Nasal Secretion SARS-CoV-2 Antigen (Rapid) - Final Physical Exam Const alert and no apparent distress General Appearance: comfortable Assessment & Plan (1) Status post vaginal delivery: PLAN: - Doing well. . Routine care. Anticipate discharge tomorrow
[2021-04-14 03:27] VITALS: BP 125/71; PULSE 59; RESP 18
[2021-04-14] MEDS: Naproxen 500 MG Tablet PO (07:35)
[2021-04-14] MEDS: Sertraline 100 MG Tablet PO (09:52)
[2021-04-14 09:59] VITALS: BP 124/81; PULSE 64; RESP 16; TEMP 37.1
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
--- NOTE | 2021-04-14 11:17 | PCM.PN.OB ---
Subjective Subjective Patient seen at bedside. Feeling good and requesting discharge home. Both breast and bottle feeding. Ambultaing and voiding without difficulty. Objective Data Objective Data Vital Signs: Vital Signs Temp Pulse Resp BP Pulse Ox 98.8 F 64 16 124/81 H 97 04/14/21 09:59 04/14/21 09:59 04/14/21 09:59 04/14/21 09:59 04/13/21 03:34 Oxygen Delivery Method Room Air Weight: 139 lb 5.314 oz Body Mass Index (BMI) 21.8 Intake & Output: Intake and Output for Last 24 Hours 04/12/21 04/13/21 04/14/21 23:59 23:59 23:59 Intake Total 2217.93 / 2217.93 338.57 / 338.57 Output Total 800 / 800 1000 / 1000 Balance 1417.93 / 1417.93 -661.43 / -661.43 Lab / Micro Data Result Diagrams: 04/12/21 08:00 Micro: Microbiology 04/12/21 20:25 Nasal Secretion SARS-CoV-2 Antigen (Rapid) - Final ROS Eyes Eyes: Denies blurry vision, change in vision or spots in vision ENT HEENT: Denies dizziness or headache(s) Cardiovascular Cardiovascular: Denies abdominal pain, chest pain or dyspnea Respiratory/Chest Respiratory/Chest: Denies cough, dyspnea, shortness of breath at rest or shortness of breath with exertion Gastrointestinal Gastrointestinal: Denies abdominal pain, diarrhea or vomiting Genitourinary Genitourinary: Denies change in urinary stream, difficulty urinating or dysuria Musculoskeletal Musculoskeletal: Reports none Integumentary Integumentary: Denies rash Neurologic Neurologic: Denies dizziness, headache(s), memory loss or weakness Physical Exam Const alert and no apparent distress General Appearance: cooperative and comfortable Exam Limitations: no limitations HEENT normocephalic Eyes General Eye: normal appearance of both eyes Neck full ROM General: normal visual inspection Chest Chest: symmetrical chest wall rise Resp normal respiratory effort and normal air movement Effort and Inspection: symmetric chest movement Auscultation: clear to auscultation bilaterally Cardio regular rate and regular rhythm GI normal to inspection, nondistended, normoactive bowel sounds Back/Spine normal ROM Extremity full ROM and no calf tenderness General Extremity: normal exam except as noted Skin no rashes or lesions noted Neuro CN's II-XII intact bilaterally Psych mental status grossly normal Assessment & Plan (1) Status post vaginal delivery: PLAN: PPD 2 Routine care Breast feeding support Zoloft 100 mg PO daily- needs Rx sent due to no refills and will follow up with PCP Discharge home with follow up in office
--- NOTE | 2021-04-14 11:17 | PCM.DC ---
Discharge Instructions Diet Discharge Diet: No restrictions Activity May resume sexual activity in: 6-8 weeks Weight Bearing Status: Weight bearing as tolerated Dressing / Incision Call your doctor if you observe: Fever of 101 or Higher, Inability to urinate, Using more than 1 pad per hour, Shortness of breath, Chest pain, Calf discomfort and Uncontrolled pain Follow Up Care Please Follow Up With: Teagan Downey CNM When: 2 weeks virtual visit/ 6 weeks in office Test Results: Test results from this visit will be discussed in further detail at your follow-up appointment, if applicable. Discharge Plan Admission Admit Date/Time: 04/12/21 07:00 Primary Reason for Your Visit: Labor and Delivery Attending Provider: Lilly Velez Primary Care Provider: Nikole Physician,Charlee Primary Instructions Patient Instructions: After a Vaginal , : Caring for Yourself Discharge Orders/Prescriptions Prescriptions: New sertraline 100 mg Tablet 100 mg PO DAILY Qty: 30 RF: 0 Continued sertraline 100 MG tablet 100 mg PO DAILY RF: 0 PNV 827-ozckq-yzxhu-3-fish oil 1 EACH tablet,chewable 1 ea PO DAILY RF: 0 ferrous sulfate 325 MG tablet 1 tab PO DAILY RF: 0 Discontinued epinephrine 0.3 mg/0.3 mL auto-injector 0.3 mg IM .once PRN (Reason: anaphylaxis) Qty: 1 RF: 0 Referrals / Follow Up: Care Physician,No Primary [Primary Care Provider] - Disposition Disposition (needs filled in before D/C Order can be placed): Home, Self Care
[2021-04-14 12:00] VITALS: BP 111/77; PULSE 60; RESP 16; TEMP 36.8
== END 2021-04-14 12:20 | disposition home or self-care (01) | DRG 560 ==
PROVIDERS: Admitting Provider Obstetrics & Gynecology; Visit Provider Obstetrics & Gynecology
DX: O36.5930 Maternal care for other known or suspected poor fetal growth, third trimester, not applicable or unspecified (principal); O70.1 Second degree perineal laceration during delivery; Z3A.38 38 weeks gestation of pregnancy; Z37.0 Single live birth
CPT/HCPCS: 36415; 59025; 59050; 85025; 85461; 86850; 86900; 86901; 87426; 88307; 90384; 99218; J7120; G0378; J2790

== ENCOUNTER 2022-02-25 05:59 | Day surgery (SDC) | payer MEDICAID, SELFPAY ==
--- NOTE | 2022-02-09 10:21 | HP.PCM_ITS ---
History and Physical Date of Admission: 02/25/22 HPI: The patient is a 27 year old female presenting for pre-operative visit. She is scheduled for laparoscopic bilateral salpingectomy, for sterilization on 02/25/22. Procedure discussed along with risks, benefits and complications. Other alternatives discussed for management. Consent form signed? Yes. ? ? PAST MEDICAL HISTORY PAST MEDICAL HISTORY Diagnosis Date ? ADHD (attention deficit hyperactivity disorder) ? ? Anemia ? ? Anxiety ? ? Depression ? ? depression ? ? Psoriasis ? ? Psoriatic arthritis (HCC) ? ? Rh incompatibility ? ? ? PAST SURGICAL HISTORY PAST SURGICAL HISTORY Procedure Laterality Date ? D&C (INCOMPLETE AB), ANY TRIMESTER ? 08/19/2016 ? INSERTION OF IUD ? 08/19/2016 ? removed 2017 ? ? ? CURRENT MEDICATIONS Current Outpatient Medications Medication Sig Dispense Refill ? lisdexamfetamine (VYVANSE) 20 mg capsule Take 1 capsule by mouth once da marlen for 30 days. 30 capsule 0 ? lamoTRIgine (LAMICTAL) 150 mg tablet Take 1 tablet by mouth once daily. 30 tablet 1 ? FLUoxetine (PROZAC) 20 mg capsule Take 1 capsule by mouth once daily. 30 capsule 1 ? hydrOXYzine pamoate (VISTARIL) 25 mg capsule Take 1 capsule by mouth three times daily as needed for anxiety. 30 capsule 1 ? norgestimate 0.25 mg-ethinyl estradiol 35 mcg (ORTHO-CYCLEN, 28,) 0.25-35 mg-mcg per tablet Take 1 tablet by mouth once daily. 28 tablet 1 ? MULTIVITAMIN ORAL Take by mouth. ? ? ? flaxseed oil (OMEGA 3 ORAL) Take by mouth. ? ? ? albuterol HFA (VENTOLIN HFA) 90 mcg/actuation inhaler Inhale 2 Puffs as instructed every 4 hours as needed for wheezing/shortness of breath. 1 Each 0 ? secukinumab (COSENTYX PEN, 2 PENS,) 150 mg/mL Inject 2 syringes subcutaneously once weekly at weeks 0, 1, 2, 3, and 4 and then stop 10 Pen 0 ? secukinumab (COSENTYX PEN, 2 PENS,) 150 mg/mL 2 mL by INJECTION(UNSPECIFIED PARENTERAL ROUTES) route every 4 weeks. 6 mL 3 ? ferrous sulfate 325 mg (65 mg iron) tablet Take one tablet by mouth once a day every other day. (Patient not taking: Reported on 02/09/2022 ) 30 tablet 4 ? Wmdumyvi-Oc-Ehz-Fe-FA ( VITAMIN) tab Take 1 tablet by mouth. (Patient not taking: Reported on 12/23/2021 ) ? ? ? No current facility-administered medications for this visit. ? ? ALLERGIES: Patient has no known allergies. ? PERSONAL HISTORY: SOCIAL HISTORY Social History ? Tobacco Use ? Smoking status: Former Smoker ? ? Years: 0.50 ? ? Quit date: 2013 ? ? Years since quittin.5 ? Smokeless tobacco: Never Used ? Tobacco comment: social Vaping Use ? Vaping Use: Never used Substance Use Topics ? Alcohol use: Not Currently ? ? Comment: occasionally ? Drug use: No ? FAMILY HISTORY: FAMILY HISTORY FAMILY HISTORY Problem Relation Age of Onset ? other (CHF) Maternal Grandmother ? ? atrial fib ? No Known Problems Mother ? ? Arthritis Father ? ? other (hemocromotosis) Father ? ? other (hemochromotosis) Brother ? ? Pancreatic Cancer Maternal Grandfather ? ? Cancer Paternal Grandmother ? ? throat ? No Known Problems Paternal Grandfather ? ? No Known Problems Daughter ? ? ? REVIEW OF SYMPTOMS: GENERAL: denies fevers or chills ENDOCRINOLOGY: has not been on steroids Cardiology : denies palpitations or chest pain Respiratory: denies SOB or cough Hematology: denies history of prolonged bleeding or easy bruising or VTE Allergy: Denies history of personal or family history of allergy to anesthesia ? PHYSICAL EXAMINATION: ? VITALS: Blood pressure 102/62, pulse 64, resp. rate 16, height 5' 7 (1.702 m), weight 127 lb (57.6 kg), last menstrual period 01/11/2022, not currently . ? GENERAL: The patient is well nourished, well hydrated in no acute distress. , The patient is oriented to time, place, and person. NECK: Supple. No lynphadenopathy, normal thyroid, no thyromegaly. LUNGS: Clear to auscultation bilaterally. no wheezes, rhonchi or rales HEART: Regular rate and rhythm, Normal heart sounds and No murmurs or gallops ? IMPRESSION: sterilization request ? PLAN: The risks/benefits/alternatives and personal involved for the planned laparoscopic bilateral salpingectomy were reviewed with the patient. Her questions were answered to her satisfaction and she desires to proceed. Consent was signed. I reviewed with her postop instructions and expectations. ? ? I have reviewed and updated past medical and surgical history, medications and allergies Assessment & Plan Assessment/Plan (1) Sterilization:
[2022-02-25 06:25] LABS: Internal QC Validated? YES +Cl - CLEAR BKGD; Pregnancy, Urine Negative Negative
[2022-02-25 06:29] VITALS: BP 124/83; PULSE 82; RESP 16; TEMP 36.6; O2SAT 100; BMI 19.6
[2022-02-25 06:45] LABS: Hematocrit 40.9 % (37-47); Hemoglobin 13.5 g/dL (12.0-15.0); Mean Corpuscular Hgb 33.1 pg (27.0-32.0); Mean Corpuscular Volume 100.2 fL (81-99); Platelet Count 242 K/mm3 (150-450); RBC Distribution Width CV 12.1 % (11.6-14.6); RBC Distribution Width SD 45.1 fl (35.1-43.9); Red Blood Count 4.08 M/mm3 (4.2-5.4); White Blood Count 5.9 K/mm3 (4.4-11.0)
[2022-02-25] MEDS: Lactated Ringers 1,000 ML 15 ML IV ×2 (06:47→08:15)
[2022-02-25] MEDS: Celecoxib 200 MG Capsule PO (06:48)
[2022-02-25] MEDS: Acetaminophen 500 MG Tablet 1000 MG PO (06:48)
--- NOTE | 2022-02-25 07:22 | DCINST_ITS ---
Discharge Instructions Diet Discharge Diet: No restrictions Activity Discharge Activity: [address] (02/26/22) Return to work on:: 02/26/22 May shower in (days): 1 May resume sexual activity in: No Restrictions Dressing / Incision Call your doctor if your incision/area has: Continuous Slow Oozing, Sudden Increased Bleeding, Increased Pain/ Swelling and Foul Smelling Discharge Call your doctor if you observe: Fever of 101 or Higher Cleanse incision/area with: Soap & Water Follow Up Care Please Follow Up With: Lilly Velez MD When: 1-2 weeks or as needed Test Results: Test results from this visit will be discussed in further detail at your follow- up appointment, if applicable. Discharge Plan Admission Primary Reason for Your Visit: Tubal sterilization Attending Provider: Lilly Velez Primary Care Provider: Charlee Macario Primary Discharge Orders/Prescriptions Prescriptions: New ibuprofen [ibuprofen] 600 MG tablet 600 mg PO Q6H PRN (Reason: Pain) 10 Days Qty: 30 1RF Continued biotin 10 mg Tablet 20 mg PO DAILY hydroxyzine HCl 25 mg Tablet 25 mg PO BID PRN (Reason: Anxiety) fluoxetine 20 mg capsule 20 mg PO DAILY lamotrigine 100 mg tablet 200 mg PO DAILY Vyvanse 20 mg capsule 20 mg PO DAILY flaxseed oil-omega 3,6,9 1,300 mg-845 mg -117 mg-117 mg Capsule 1 cap PO DAILY cholecalciferol (vitamin D3) [Vitamin D3] 25 mcg (1,000 unit) Capsule 25 mcg PO DAILY ru-ct-rxgu-FA-Ca carb-vit K 18 mg iron-400 mcg-500 mg Tablet 1 tab PO DAILY Cosentyx Pen (2 Pens) 150 mg/mL pen injector 1 ea SUBCUT QMONTH Referrals / Follow Up: Care Physician,Charlee Primary [Primary Care Provider] - Disposition Disposition (needs filled in before D/C Order can be placed): Home, Self Care
--- NOTE | 2022-02-25 07:30 | FALS_PTH ---
PATIENT: HARRISON YOUNG LOC: [facility] [place][id number] AGE/SX: 27/F ROOM: RE02/25/[address]: Dr. Lilly Velez MD : [id number] BED: DIS: 02/25/2022 SPEC #: [id number] RECD: 02/25/22 14:34 STATUS: SHELBY MELENDEZ #: [id number] MARIA A: 02/25/22 07:[address]: Lilly Velez DEPT: SURGICAL PATHOLOGY RECD BY: Gemini Sol ENTERED: 02/26/22 06:57 SP TYPE: FALL TUBES OTHR DR: No Primary Care Phys Tissues: Fallopian tube Procedures: Surgery Specimen Level II HEADER OPERATION: Laparoscopic salpingectomy PRE-OP DIAGNOSIS: Elective sterilization TISSUE SUBMITTED: Bilateral fallopian tubes MICROSCOPIC DIAGNOSIS Bilateral fallopian tubes, salpingectomy: Bilateral fallopian tubes, no pathologic diagnosis. JUSTUS:joseluis 03/01/2022 MICROSCOPIC DESCRIPTION Slides are reviewed. GROSS DESCRIPTION Received in fixative is one container labeled with the patient's name and designated bilateral fallopian tubes. The specimen consists of bilateral fallopian tubes including fimbrial ends measuring 6.5 cm in length and 0.5 cm in diameter and 5.5 cm in length and 0.5 cm in diameter. The fallopian tubes are not identified as right or left. Sections reveal unremarkable cut surfaces. Film Loader sections are submitted in two cassettes with each cassette containing one fallopian tube. / JUSTUS:joseluis 02/26/2022 TC:4 CPT: 35848 x2
[2022-02-25] MEDS: Bupivacaine 0.25% 30 ML Vial (07:42)
--- NOTE | 2022-02-25 08:00 | PCM.OPRPT ---
Problems Associated Problem List Diagnoses (1) Sterilization: Report of Operation Date of Procedure: 02/25/22 Pre-Operative Diagnosis: sterilization request Post-Operative Diagnosis: same Surgery/Procedure Performed:: Laparoscopic bilateral salpingectomy Description of Surgical Findings:: Normal uterus, tubes and ovaries, normal peritoneal cavity. 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 A weighted speculum was placed in the vagina and the anterior lip of the cervix was grasped with a tenaculum. The [employer] uterine manipulator was placed and the remainder of the instruments were removed from the vagina. Attention was turned to the abdomen. All port sites were infiltrated with 0.5% Marcaine before skin incisions were made. A 5 mm [intraumbilical] incision was made. The anterior abdominal wall was tented up with 2 towel clamps while a 5 mm blade less trocar and sleeve were inserted with the Visiport under direct visualization. Intraperitoneal placement was confirmed with the laparoscope. The pneumoperitoneum was created and the underlying abdominal contents were intact. The patient was placed in Trendelenburg. Right and left lower quadrant ports were placed under direct visualization lateral to the inferior epigastric vessels. The bowel was swept away and the above findings were noted. The Enseal device was used to clamp seal and transect the antimesenteric portions of the right tube to the cornual insertion of the uterus. The tube was amputated from the uterus and the pedicles were all confirmed to be hemostatic. The same procedure was performed on the contralateral side. The specimens were brought out through a 5 mm port. The pedicles were again examined and found to be hemostatic. The lateral ports were removed under direct visualization and no active bleeding was noted. The pneumoperitoneum was released. The skin incisions were closed with Monocryl suture in a subcuticular fashion and skin glue. The vaginal instruments were removed and the vaginal sweep was completed by me. The entire procedure was performed by me with assistance. All sponge and needle counts were correct and the patient was taken to the recovery room in stable condition. Procedure Start Time: 09:42 Procedure Stop Time: 10:01 Complications none Admit VTE Documentation VTE Present on Admission: No VTE Mechan Device Prophylaxis: SCD's VTE Pharm Prophylaxis ordered?: No Reason prophylaxis not ordered:: Procedure Not Indicated
[2022-02-25 08:19] VITALS: BP 114/78; BP 124/83; PULSE 82; RESP 16; TEMP 36.9; O2SAT 98
[2022-02-25 08:30] VITALS: BP 103/69; BP 124/83; PULSE 82; RESP 16; O2SAT 97
[2022-02-25 08:45] VITALS: BP 103/62; BP 124/83; PULSE 82; RESP 16; TEMP 36.6; O2SAT 97
[2022-02-25 09:48] VITALS: BP 108/73; BP 124/83; PULSE 88; RESP 16; TEMP 37.2; O2SAT 100
== END 2022-02-25 09:50 | disposition home or self-care (01) ==
LOC: SDC 05:59 → AC 06:02
PROVIDERS: Referring Provider Obstetrics & Gynecology; Visit Provider Obstetrics & Gynecology
PROC: (CPT 58661; principal; 2022-02-25 07:15)
DX: Z30.2 Encounter for sterilization (principal); F41.9 Anxiety disorder, unspecified; F32.A Depression, unspecified; Z79.899 Other long term (current) drug therapy; Z87.891 Personal history of nicotine dependence
CPT/HCPCS: 58661; 00840; 81025; 85027; 88302; J7120; C1760; J2405